=== PATIENT | female | born 1960 | race Caucasian/White ===

== ENCOUNTER → 2021-09-15 | Outpatient (CLI) | payer BC | LOC: RAD 15:40 | DX: I67.82 Cerebral ischemia (principal); G31.9 Degenerative disease of nervous system, unspecified ==

== ENCOUNTER → 2021-10-03 | Outpatient (CLI) | payer BC | LOC: RAD 09:43 → VAS 09:43 → RAD 10:00 | DX: I65.21 Occlusion and stenosis of right carotid artery (principal) ==

== ENCOUNTER → 2022-07-04 | Outpatient (CLI) | payer BC | LOC: RAD 10:02 | DX: S04 Injury of cranial nerve (principal); X58.XXXD Exposure to other specified factors, subsequent encounter | CPT/HCPCS: A9575 ==

== ENCOUNTER → 2022-08-22 | Outpatient (CLI) | payer BC | LOC: VAS 11:30 → RAD 11:30 | DX: S04.892A Injury of other cranial nerves, left side, initial encounter (principal); X58.XXXA Exposure to other specified factors, initial encounter ==

== ENCOUNTER → 2024-04-09 | Outpatient (CLI) | payer MEDICARE, BC | LOC: RAD 09:07 | DX: M25.552 Pain in left hip (principal) ==